=== PATIENT | male | born 1980 | race African-American/Black ===

== ENCOUNTER → 2018-04-06 06:33 | Outpatient (CLI) | payer OTHER, SELFPAY ==
--- NOTE | 2018-04-06 | DI.MRI.S_ITS ---
PROCEDURE: MR LUMBAR SPINE WO/W CON INDICATIONS: DORSALGIA TECHNIQUE: Noncontrast sagittal T1 spin echo and T2 fast spin echo, sagittal STIR, axial T1 and T2 fast spin echo through the lumbar spine. In cases with scoliosis, additional coronal T2 fast spin echo may be performed. After the administration of contrast, sagittal and axial T1 spin echo with fat saturation through the lumbar spine. COMPARISON: None. FINDINGS: Image quality: Excellent. Alignment and curvature: There is normal bony alignment. Marrow: Marrow is of normal overall signal. No acute vertebral body compression fractures. No suspicious marrow enhancement. Spinal cord: Conus medullaris terminates at the L1-L2 level. Visualized spinal cord demonstrates normal signal, without suspicious enhancement. Paraspinous soft tissues: No paravertebral masses or abnormal enhancement. L1-L2: Normal appearance. L2-L3: Normal appearance. L3-L4: Normal appearance. L4-L5: Normal appearance. L5-S1: Normal appearance. IMPRESSION: Normal examination. Dictated by: Jennifer Russell M.D. on 04/06/2018 at 11:20 Transcribed by: [email or web address] on 04/06/2018 at 11:21 Approved by: Jennifer Russell M.D. on 04/06/2018 at 15:19
== END ==
PROVIDERS: Visit Provider Radiology Diagnostic Radiology
DX: M54.9 Dorsalgia, unspecified (principal)
CPT/HCPCS: 72158